=== PATIENT | female | born 1990 | race Hispanic/Latino ===

== ENCOUNTER 2018-10-10 21:11 | Outpatient (CLI) | payer MEDICAID, OTHER ==
[2018-10-10] MEDS ORDERED: LACTATED RINGERS 1,000 ML IV ONE (22:39)
[2018-10-10 23:34] VITALS: BP 106/60
--- NOTE | 2018-10-11 00:29 | Ultrasound Report ---
PROCEDURE: US OB LIMITED TECHNIQUE: Real-time limited sonographic examination was performed for evaluation of for each fetus with image documentation (1 or more fetuses). HISTORY: decrease movement COMPARISONS: None . FINDINGS: Fetus is in a cephalic presentation. Heart rate is 131 bpm. Amniotic fluid and neck since 10.1 cm. IMPRESSION: Fetus is in a cephalic presentation. Heart rate is 131 bpm. Amniotic fluid and neck since 10.1 cm. This document is electronically signed by Casper Fairbanks MD., October 11 2018 12:26:58 AM ET
--- NOTE | 2018-10-11 00:36 | Ultrasound Report ---
PROCEDURE: US OB BPP WO NON-STRESS TECHNIQUE: Ultrasound for biophysical profile. HISTORY: Decreased movement. COMPARISONS: Ultrasound dated October 10, 2018. FINDINGS: Last menstrual period: 03/08/2018. Estimated date of delivery: 12/13/2018. Estimated gestational age: 30 week 6 day. Cephalic presentation. Biophysical profile: breathing movements: Score 2/2. movements: Score 2/2. posture tone: 2/2. Qualitative amniotic fluid volume: 2/2: heart rate: 131 bpm. Total score for biophysical profile: 8/8. IMPRESSION: Normal biophysical profile. This document is electronically signed by Ketan Fenton DO., October 11 2018 12:34:11 AM ET
== END 2018-10-10 23:59 | disposition home or self-care (01) ==
LOC: TRG 21:11
PROVIDERS: ATTEND Obstetrics & Gynecology
DX: O47.03 False labor before 37 completed weeks of gestation, third trimester (principal); Z3A.30 30 weeks gestation of pregnancy; Z90.89 Acquired absence of other organs
CPT/HCPCS: 59025; 76815; 76819

== ENCOUNTER 2018-12-05 09:48 | Inpatient (IN) | payer MEDICAID, OTHER ==
--- NOTE | 2018-12-05 10:17 | History and Physical Report ---
History of Present Illness Date of examination: 12/05/18 Date of admission: 12/05/18 09:48 Chief complaint: Repeat C Section History of present illness: Pt is a 28yo WF EDC 12/12/2018; EGA 39-0/7 weeks who presents for repeat C- section. She received care at [facility] since 10 weeks and care has been uncomplicated except for previous 2. records are available, but GBS is unknown Past History Past Medical History: no pertinent history Past Surgical History: section (x2) OFFICE NURSE History: abnormal PAP smear Family/Genetic History: none Social history: no significant social history, single - Obstetrical History Expected Date of Delivery: 12/12/18 Actual Gestation: 39 Week(s) 0 Day(s) : 4 Medications and Allergies Allergies Allergy/AdvReac Type Severity Reaction Status Date / Time Penicillins Allergy Rash Verified 05/05/14 15:54 Home Medications Medication Instructions Recorded Confirmed Last Taken Type Ferrous Sulfate [Feosol 325 MG tab] 325 mg PO BID #60 tablet 03/30/15 12/05/18 12/04/18 21:00 Rx 1 Vit-Fe Fumar-FA [ 1 tab PO QDAY #30 tablet 03/30/15 12/05/18 12/04/18 09:00 Rx Vitamin] 1 Review of Systems All systems: negative - Physical Exam Breasts: Positive: deferred Cardiovascular: Regular rate Lungs: Positive: Clear to auscultation Abdomen: Positive: normal appearance Genitourinary (Female): Positive: normal external genitalia Vagina: Positive: normal moisture Uterus: Positive: enlarged Extremities: Positive: normal - Obstetrical FHR: category 1 Uterine Contraction Monitor Mode: External Uterine Contraction Pattern: Absent Results Result Diagrams: 12/05/18 11:20 All other labs normal. Assessment and Plan - Patient Problems (1) 39 weeks gestation of Onset Date: 12/05/18 Current Visit: Yes Status: Acute Plan to address problem: A: IUP @ 39 0/7 weeks Previous C Section x 2 P: Admit to L&D for a Repeat C Section (2) Previous delivery affecting , antepartum Onset Date: 12/05/18 Current Visit: No Status: Chronic
[2018-12-05] MEDS ORDERED: BENADRYL IV PRN (10:41)
[2018-12-05] MEDS ORDERED: NARCAN 0.4 MG/1 ML IV PRN ×2 (10:41→14:14)
[2018-12-05] MEDS ORDERED: ZOFRAN IV PRN (10:41)
[2018-12-05] MEDS ORDERED: DILAUDID IV PRN ×2 (10:41)
--- NOTE | 2018-12-05 10:41 | Anesthesia Consultation ---
Anesthesia Consult and Med Hx Date of service: 12/05/18 - Airway Anesthetic Teeth Evaluation: Poor ROM Head & Neck: Adequate Mental/Hyoid Distance: Adequate Mallampati Class: Class II Intubation Access Assessment: Probably Good - Pulmonary Exam CTA: Yes - Cardiac Exam Cardiac Exam: RRR - Pre-Operative Health Status ASA Pre-Surgery Classification: ASA2 Proposed Anesthetic Plan: Spinal - Pulmonary Hx Smoking: No Hx Asthma: No Hx Respiratory Symptoms: No SOB: No COPD: No Home Oxygen Therapy: No Hx Pneumonia: No Hx Sleep Apnea: No - Cardiovascular System Hx Hypertension: No Hx Coronary Artery Disease: No Hx Heart Attack/AMI: No Hx Angina: No Hx Percutaneous Transluminal Coronary Angioplasty (PTCA): No Hx Cardia Arrhythmia: No Hx Pacemaker: No Hx Internal Defibrillator: No Hx Valvular Heart Disease: No Hx Heart Murmur: No Hx Peripheral Vascular Disease: No - Central Nervous System Hx Neuromuscular Disorder: No Hx Seizures: No CVA: No Hx Back Pain: Yes Hx Psychiatric Problems: No - Gastrointestinal Hx Ulcer: No Hx Gastroesophageal Reflux Disease: No - Endocrine Hx Renal Disease: No Hx End Stage Renal Disease: No Hx Cirrhosis: No Hx Liver Disease: No Hx Insulin Dependent Diabetes: No Hx Non-Insulin Dependent Diabetes: No Hx Thyroid Disease: No Hx Hypothyroidism: No Hx Hyperthyroidism: No - Hematic Hx Anemia: Yes (iron bid) Hx Sickle Cell Disease: No - Other Systems Hx Alcohol Use: No Hx Substance Use: No Hx Cancer: No Hx Obesity: Yes (BMI=39)
--- NOTE | 2018-12-05 10:41 | Anesthesia Day of Surgery ---
Anesthesia Day of Surgery - Day of Surgery Patient Examined: Yes Patient H&P Reviewed: Yes Patient is NPO: Yes Beta Blockers: No Cardiac Clearance: No Pulmonary Clearance: No Pavel's Test: N/A
[2018-12-05] MEDS ORDERED: SODIUM CHLORIDE FLUSH SYRINGE 10 ML IV NR ×2 (11:00→15:00)
[2018-12-05] MEDS ORDERED: LACTATED RINGERS 1,000 ML ONE (11:11)
[2018-12-05 11:34] LABS: Basophils % (Auto) 0.3 % (0.0-1.8); Eosinophils % (Auto) 0.2 % (0.0-4.3); Hematocrit 30.9 % (30.3-42.9); Hemoglobin 10.1 gm/dl (10.1-14.3); Lymphocytes # (Auto) 1.1 K/mm3 (1.2-5.4); Lymphocytes % (Auto) 19.9 % (13.4-35.0); Mean Corpuscular HGB Conc 33 % (30-34); Mean Corpuscular Volume 78 fl (79-97); Monocytes # (Auto) 0.4 K/mm3 (0.0-0.8); Monocytes % (Auto) 6.1 % (0.0-7.3); Platelet Count 141 K/mm3 (140-440); Red Blood Count 3.95 M/mm3 (3.65-5.03); Red Cell Distribution Width 19.3 % (13.2-15.2)
[2018-12-05] MEDS: LACTATED RINGERS 1,000 ML IV SCH ×2 (11:50→12:42)
[2018-12-05] MEDS ORDERED: LACTATED RINGERS 1,000 ML IV SCH (12:00)
[2018-12-05] MEDS ORDERED: PEPCID IV ONE (12:09)
[2018-12-05] MEDS ORDERED: REGLAN IV ONE (12:09)
[2018-12-05] MEDS ORDERED: BICITRA PO ONE (12:09)
[2018-12-05] MEDS ORDERED: WATER FOR IRRIG STERILE IR ONE (13:00)
[2018-12-05] MEDS ORDERED: NACL 0.9% IR ONE (13:00)
[2018-12-05] MEDS ORDERED: ANCEF/STERILE WATER 2 GM/20 ML 2 GM/20 ML SYRINGE IV NR (13:00)
[2018-12-05] MEDS ORDERED: PITOCin/NS 20 UNIT/1000ML DRIP 20 UNITS/1,000 ML BAG IV SCH ×2 (13:00→15:00)
[2018-12-05] MEDS ORDERED: ZOFRAN ONE (13:44)
--- NOTE | 2018-12-05 14:12 | Operative Report ---
Operative Report Operative Report: Date of procedure: 12/05/2018 Pre-operative diagnosis: 1. Intrauterine at 39 0/7 weeks 2. Previ ous 2 Post-operative diagnosis: Same Procedure name(s): Repeat low transverse section Surgeon: Malcom Castillo MD Labor Relations Teacher: None Anesthesia: Spinal anesthesia by Breonna Singleton CRNA EBL: 500 mL's Findings: A 3601 g female Apgars 8 at 1 minute 9 at 5 minutes. Clear amniotic fluid. Normal uterus. Normal tubes and ovaries bilaterally. Procedure: After the patient was prepped and draped in usual sterile fashion, and after satisfactory level of epidural anesthesia was obtained, the skin knife was used to make a transverse skin incision through the previous skin scar. The incision was excised down to layer of the fascia, which was nicked in the midline and extended laterally using the Bovie cautery. The rectus muscles were dissected off the rectus fascia both superiorly and inferiorly. The rectus bellies in the midline, and the peritoneum was entered under direct visualization. The peritoneal incision was extended superiorly and inferiorly. A bladder flap was created and the bladder blade was then placed. The uterus was scored in a curvilinear linear fashion, entered in the midline revealing clear amniotic fluid. The infant's head was delivered onto the surgical field, and the oropharynx and nasopharynx were bulb suctioned. The rest of the 's body was delivered, cord was doubly clamped and cut and the infant was handed to the waiting respiratory team. The placenta was manually removed from the uterus, and the uterus removed from its normal anatomical position. After gentle uterine lavage, the incision was inspected and found to be without extensions. It was then closed in 2 layers using 0 Vicryl suture in a running interlocking fashion, the second layer imbricating the first. After good hemostasis was achieved, copious amounts or irrigation was performed, and the gutters were suctioned free of blood and blood clots. The Tisseel sealant was sprayed across the uterine incision. The uterus was then returned to its normal anatomical position, and after excellent hemostasis assured, the peritoneum was re-approximated using 3-0 Vicryl suture in a running interlocking fashion, and then the rectus muscles were re-approximated using 3-0 Vicryl suture in a [id number] configuration. The fascia was then re-approximated using 0 Vicryl suture in running interlocking fashion. The subcutaneous layer was made hemostatic using Bovie cautery, and the skin edges re-approximated using 4-0 Vicryl suture in a sub-cuticular fashion. Patient tolerated the procedure well was transported to recovery in stable condition.
[2018-12-05] MEDS ORDERED: MYLICON PO PRN (14:14)
[2018-12-05] MEDS ORDERED: LANSINOH TP PRN (14:14)
[2018-12-05] MEDS ORDERED: SENOKOT PO PRN (14:14)
[2018-12-05] MEDS ORDERED: TUCKS PAD TP PRN (14:14)
[2018-12-05] MEDS ORDERED: MILK OF MAGNESIA PO PRN (14:14)
[2018-12-05] MEDS ORDERED: TYLENOL PO PRN (14:14)
--- NOTE | 2018-12-05 14:29 | Post Anesthesia Evaluation ---
- Post Anesthesia Evaluation Patient Participated: Yes Airway Patent: Yes Stable Respiratory Function: Yes Nausea/Vomiting: No Temp > 96.8F: Yes Pain Manageable: Yes Adequeate Hydration: Yes Anesthesia Complications: No Block Receding Appropriately: Yes Patient on Ventilator: No
[2018-12-05] MEDS ORDERED: ANCEF/NS 1 GM/50 ML 1 GM/50 ML BAG IV SCH (15:00)
[2018-12-05] MEDS ORDERED: D5LR 1,000 ML IV SCH (15:00)
[2018-12-05] MEDS: TORADOL IV PRN ×2 (18:15→23:25)
[2018-12-05] MEDS: ANCEF/NS 1 GM/50 ML 1 GM/50 ML BAG IV SCH (22:22)
[2018-12-06 02:07] LABS: Hematocrit 25.1 % (30.3-42.9); Hemoglobin 8.5 gm/dl (10.1-14.3)
[2018-12-06] MEDS: PERCOCET 5/325 PO PRN ×2 (05:08→20:36)
[2018-12-06] MEDS: ANCEF/NS 1 GM/50 ML 1 GM/50 ML BAG IV SCH (05:12)
[2018-12-06] MEDS: PRENATAL VITAMIN PO SCH (10:28)
[2018-12-06] MEDS: FEOSOL PO SCH (10:28)
[2018-12-06] MEDS: IBUPROFEN PO PRN ×2 (10:36→23:37)
--- NOTE | 2018-12-06 12:41 | Progress Note ---
Assessment and Plan - Patient Problems (1) S/P repeat low transverse Current Visit: No Status: Acute Plan to address problem: POD 1 - stable Continue routine postop orders Ambulation encouraged, as tolerated Anticipate discharge in 24-48 hours (2) Anemia due to blood loss, acute Current Visit: Yes Status: Acute Plan to address problem: Asymptomatic Continue iron therapy Subjective - Subjective Date of service: 12/06/18 Principal diagnosis: POD #1; s/p Repeat LTCS Interval history: see H&P and Operative Report Patient reports: appetite normal, voiding normally, pain well controlled, flatus, ambulating normally, no dizzy ambulation, no bowel movement : doing well, bottle feeding Objective - Vital Signs Latest vital signs: Vital Signs Temp Pulse Resp BP Pulse Ox 12/06/18 08:22 98.2 F 57 L 18 107/55 97 12/06/18 06:10 98.4 F 67 16 94/51 95 12/06/18 05:08 18 12/06/18 01:46 18 12/06/18 00:46 98.9 F 60 18 104/64 97 12/05/18 23:25 18 12/05/18 20:27 98.3 F 55 L 18 114/64 96 12/05/18 15:26 97.6 F 54 L 18 110/56 97 12/05/18 15:18 53 L 18 107/52 97 12/05/18 15:00 52 L 16 94/40 97 12/05/18 14:45 51 L 16 98/39 97 12/05/18 14:30 50 L 18 91/43 97 12/05/18 14:24 97.8 F 57 L 11 L 114/88 Intake and Output 12/05/18 12/06/18 12/06/18 23:59 07:59 15:59 Intake Total 230 600 240 Output Total 400 310 380 Balance -170 290 -140 Intake: IV 50 ANCEF/NS 1 GM/50 ML 1 gm 50 In 50 ml @ 100 mls/hr IV Q8H [facility] Rx#:[id number] Intake, Free Water 180 600 240 Output: Urine 400 310 380 Indwelling Catheter 400 310 Void 380 Other: Total, Output Amount 400 60 380 # Voids Void 2 - Exam Abdomen: Present: normal appearance, soft Uterus: Present: normal, firm, fundal height at umbilicus Extremities: Present: normal Incision: Present: normal, dry, intact, dressed Comments: small lochia - Labs Labs: Abnormal lab results 12/06/18 Range/Units 01:52 Hgb 8.5 L (10.1-14.3) gm/dl Hct 25.1 L (30.3-42.9) %
[2018-12-06] MEDS ORDERED: M-M-R II VACCINE SUB-Q ONE (14:16)
[2018-12-06] MEDS ORDERED: BOOSTRIX IM ONE (14:16)
[2018-12-06] MEDS: NORCO 5/325 PO PRN (15:50)
[2018-12-07] MEDS: PRENATAL VITAMIN PO SCH (10:00)
[2018-12-07] MEDS: FEOSOL PO SCH (10:00)
[2018-12-07] MEDS: IBUPROFEN PO PRN (12:15)
[2018-12-07] MEDS: PERCOCET 5/325 PO PRN (12:17)
--- NOTE | 2018-12-07 20:52 | Progress Note ---
Assessment and Plan A: /postop day 2 S/P repeat low transverse section. Anemia secondary to and blood loss. P: Continue ambulation. Continue iron supplementation. Subjective - Subjective Date of service: 12/07/18 Principal diagnosis: POD #2; s/p Repeat LTCS Interval history: /postop day 2 S/P repeat low transverse section. Doing well. Patient reports small amount of lochia. Passing gas, voiding without difficulty, ambulating well, tolerating a regular diet. Patient denies headache, chest pain, cough, shortness of breath, dizziness, leg pain, abdominal pain, or heavy bleeding. Patient reports: appetite normal, voiding normally, pain well controlled, flatus, ambulating normally, no dizzy ambulation, no nauseated : doing well Objective - Vital Signs Latest vital signs: Vital Signs Temp Pulse Resp BP Pulse Ox 12/07/18 17:51 98.2 F 65 18 126/68 99 12/07/18 08:23 98.1 F 55 L 18 116/63 98 12/07/18 00:19 98.7 F 67 20 111/62 95 Intake and Output 12/07/18 12/07/18 12/07/18 07:59 15:59 23:59 Intake Total 1560 Balance 1560 Intake: Oral 600 Intake, Free Water 960 Other: Total, Intake Amount 600 # Voids Void 4 - Exam Cardiovascular: Present: Regular rate, Normal S1, Normal S2 Lungs: Present: Clear to auscultation Abdomen: Present: normal appearance, soft, normal bowel sounds. Absent: distention, tenderness, guarding, rigidity Uterus: Present: normal, firm. Absent: bogginess, tenderness Extremities: Present: normal. Absent: tenderness, edema Incision: Present: normal, dry, intact
[2018-12-07] MEDS: NORCO 5/325 PO PRN (21:58)
[2018-12-08] MEDS: FEOSOL PO SCH (09:15)
[2018-12-08] MEDS: PRENATAL VITAMIN PO SCH (09:15)
[2018-12-08] MEDS: IBUPROFEN PO PRN (09:16)
--- NOTE | 2018-12-08 16:21 | Progress Note ---
Assessment and Plan A: /postop day 3 S/P repeat low transverse section. Anemia secondary to and blood loss. P: Discharge patient home today. Discused with patient discharge instructions and warning signs, care of incision, and activity restrictions. Advised patient to continue to take vitamins and iron supplements at home. Advised patient to avoid intercourse, driving, stair climbing, lifting, heavy housework, tub baths (patient may take showers). Advised patient to follow up at OB clinic in 1 week for incision check. Patient voiced understanding of discharge instructions. Subjective - Subjective Date of service: 12/08/18 Principal diagnosis: POD #3; s/p Repeat LTCS Interval history: /postop day 3 S/P repeat low transverse section. Doing well. Patient reports small amount of lochia. Passing gas, voiding without difficulty, ambulating well, tolerating a regular diet. Patient denies headache, chest pain, cough, shortness of breath, dizziness, leg pain, abdominal pain, nausea or vomiting, or heavy bleeding. Patient reports: appetite normal, voiding normally, pain well controlled, flatus, ambulating normally, no dizzy ambulation, no nauseated [place]: doing well Objective - Vital Signs Latest vital signs: Vital Signs Temp Pulse Resp BP Pulse Ox 12/08/18 08:22 98.3 F 68 20 120/74 100 12/08/18 00:43 97.9 F 69 20 119/68 99 12/07/18 22:58 18 12/07/18 21:58 18 12/07/18 17:51 98.2 F 65 18 126/68 99 Intake and Output 12/08/18 12/08/18 12/08/18 07:59 15:59 23:59 Intake Total 240 Balance 240 Intake: Oral 240 Other: Total, Intake Amount 240 # Voids Void 1 1 - Exam Cardiovascular: Present: Regular rate, Normal S1, Normal S2, No murmurs Lungs: Present: Clear to auscultation Abdomen: Present: normal appearance, soft, normal bowel sounds. Absent: distention, tenderness, guarding, rigidity Uterus: Present: normal, firm, fundal height below umbilicus. Absent: bogginess, tenderness Extremities: Present: normal. Absent: tenderness, edema Incision: Present: normal, dry, intact
--- NOTE | 2018-12-08 16:24 | Discharge Summary ---
Providers - Providers Date of Admission: 12/05/18 09:48 Date of discharge: 12/08/18 Attending physician: SUSIE FLORES None Primary care physician: SUSIE FLORES Hospitalization Reason for admission: section Delivery: Procedure: repeat low transverse Incision: normal, dry, intact Other procedures: none complications: none Discharge diagnosis: IUP at term delivered [place] baby: female Pertinent studies: Labs Hospital course: Normal hospital course. Disposition: DC-30 STILL A PATIENT Plan - Discharge Medications Prescriptions: Ferrous Sulfate [Feosol 325 MG tab] 325 mg PO BID #60 tablet Ibuprofen [Motrin] 800 mg PO Q8HR PRN #30 tablet PRN Reason: Pain, Mild (1-3) HYDROcodone/APAP 5-325 [[place] 5/325] 1 each PO Q6HR PRN #30 tablet PRN Reason: Pain Vit-Fe Fumar-FA [ Vitamin] 1 tab PO QDAY #30 tablet - Provider Discharge Summary Activity: routine, no sex for 6 weeks, no heavy lifting 4 weeks, no strenuous exercise Diet: routine Instructions: routine Additional instructions: Please continue taking your vitamins and iron supplements at home. Call your doctor immediately for: * Fever > 100.5 * Heavy vaginal bleeding ( >1 pad per hour) * Severe persistent headache * Shortness of breath * Reddened, hot, painful area to leg or breast * Drainage or odor from incision. * Keep incision clean and dry at all times and follow doctor's instructions regarding bathing/showering - Follow up plan Follow up: SUSIE FLORES MD [Primary Care Provider] - 7 Days Forms: [facility] Discharge Summary
[2018-12-08 17:27] VITALS: BP 116/70
== END 2018-12-08 20:00 | disposition home or self-care (01) | DRG 765 ==
LOC: APU 09:48 → OB 16:35
PROVIDERS: ADMIT Obstetrics & Gynecology; ATTEND Obstetrics & Gynecology
PROC: 10D00Z1 Extraction of Products of Conception, Low, Open Approach (ICD-10-PCS; principal; 2018-12-05)
PROC: 3E0234Z Introduction of Serum, Toxoid and Vaccine into Muscle, Percutaneous Approach (ICD-10-PCS; 2018-12-06)
DX: O34.211 Maternal care for low transverse scar from previous cesarean delivery (principal); D62 Acute posthemorrhagic anemia; Z37.0 Single live birth; Z3A.39 39 weeks gestation of pregnancy; Z88.0 Allergy status to penicillin; O99.214 Obesity complicating childbirth; E66.9 Obesity, unspecified; O99.02 Anemia complicating childbirth; Z23 Encounter for immunization
CPT/HCPCS: 36415; 59025; 85014; 85018; 85025; 86592; 86850; 86900; 86901; 96360; 96361; 96374; G0378; J0690; J1170; J1885; J2405; J2590; J2765; J7120; J7121

== ENCOUNTER 2020-10-24 22:16 | Outpatient (CLI) | payer MEDICAID ==
[2020-10-24 22:42] VITALS: BP 112/63
[2020-10-25] LABS: Bacteria,Urine 3+ /HPF (Negative); Bilirubin,Urine NEG (Negative); Blood,Urine NEG (Negative); Color,Urine Yellow (Yellow); Mucus,Urine 3+ /HPF
[2020-10-25] MEDS ORDERED: LIDOCAINE-MPF (1%) 10 MG/1 ML VIAL 5 ML INFILTRATI ONE (01:15)
== END 2020-10-25 00:45 | disposition home or self-care (01) ==
LOC: TRG 22:16 → APU 22:24 → TRG 10-25 00:45
DX: O36.8120 Decreased fetal movements, second trimester, not applicable or unspecified (principal); O26.92 Pregnancy related conditions, unspecified, second trimester; R10.30 Lower abdominal pain, unspecified; Z3A.22 22 weeks gestation of pregnancy
CPT/HCPCS: 59025; 81001; 96372; J0696

== ENCOUNTER 2021-02-15 09:01 | Inpatient (IN) | payer MEDICAID ==
[2021-02-15] MEDS ORDERED: METOCLOPRAMIDE 10 MG/2 ML INJ IV NR (09:33)
[2021-02-15] MEDS ORDERED: BICITRA ORAL LIQD 30ML PO NR (09:33)
[2021-02-15] MEDS ORDERED: FAMOTIDINE 20 MG/2 ML INJ IV NR (09:33)
--- NOTE | 2021-02-15 09:37 | History and Physical Report ---
History of Present Illness Date of examination: 02/15/21 Date of admission: 02/15/21 09:01 Chief complaint: repeat c/s + BTL History of present illness: 30 yo at 39w0d (MARY 02/22/21) c/b prior x c/s x 3, Class III Obesity presenting for repeat and bilateral tubal ligation. Denies labor symptoms or PIH symptoms. Active fetus. PNC reviewed A pos, Ab neg Hemoglobin and hematocrit 35.8 and 12.0 platelets 253 Varicella immune Rubella immune RPR nonreactive HIV nonreactive 1 hour GTT 77 Past History Past Medical History: no pertinent history Past Surgical History: section (x3), D&C Family/Genetic History: hypertension Social history: no significant social history - Obstetrical History Expected Date of Delivery: 02/22/21 Actual Gestation: 39 Week(s) 0 Day(s) : 5 Para: 5 Hx # Term Pregnancies: 3 Spontaneous Abortions: 1 Number of Living Children: 3 Medications and Allergies Allergies Allergy/AdvReac Type Severity Reaction Status Date / Time No Known Allergies Allergy Unverified 12/07/18 06:50 Home Medications Medication Instructions Recorded Confirmed Last Taken Type Ferrous Sulfate [Feosol 325 MG tab] 325 mg PO BID #60 tablet 12/05/18 Unknown Rx HYDROcodone/APAP 5-325 [[place] 1 each PO Q6HR PRN #30 tablet 12/05/18 Unknown Rx 5/325] Ibuprofen [Motrin] 800 mg PO Q8HR PRN #30 tablet 12/05/18 Unknown Rx Vit-Fe Fumar-FA [ 1 tab PO QDAY #30 tablet 12/05/18 Unknown Rx Vitamin] Review of Systems All systems: negative (expect HPI) - Physical Exam Abdomen: Positive: normal appearance, soft Uterus: Positive: enlarged - Obstetrical FHR: category 1 Uterine Contraction Monitor Mode: External Uterine Contraction Pattern: Absent Results All other labs normal. Assessment and Plan - Patient Problems (1) S/P repeat low transverse Current Visit: No Status: Acute Plan to address problem: To the OR for repeat and bilateral tubal ligation --Consented in the chart --Questions solicited and answered
[2021-02-15] MEDS ORDERED: OXYTOCIN DRIP 30 UNITS/500 ML BAG IV SCH ×2 (10:00→14:00)
[2021-02-15] MEDS ORDERED: ceFAZolin/Water 2 GM/20 ML 2 GM/20 ML SYRINGE IV NR (10:00)
[2021-02-15] MEDS: LACTATED RINGERS 1,000 ML IV SCH ×3 (10:00→22:51)
[2021-02-15 10:04] LABS: Basophils % (Auto) 0.2 % (0.0-1.8); Eosinophils % (Auto) 0.3 % (0.0-4.3); Hematocrit 28.7 % (30.3-42.9); Hemoglobin 9.4 gm/dl (10.1-14.3); Lymphocytes # (Auto) 1.3 K/mm3 (1.2-5.4); Lymphocytes % (Auto) 21.9 % (13.4-35.0); Mean Corpuscular HGB Conc 33 % (30-34); Mean Corpuscular Volume 75 fl (79-97); Monocytes # (Auto) 0.4 K/mm3 (0.0-0.8); Monocytes % (Auto) 6.9 % (0.0-7.3); Platelet Count 165 K/mm3 (140-440); Red Cell Distribution Width 15.9 % (13.2-15.2)
[2021-02-15] MEDS ORDERED: dexAMETHasone 20 MG/5 ML VIAL ONE (10:47)
[2021-02-15] MEDS ORDERED: BUPIVACAINE/PF (0.5%) 5 MG/1 ML 30 ML VIAL INFILTRATI ONE (10:47)
[2021-02-15] MEDS ORDERED: ONDANSETRON 4 MG/2 ML INJ ONE (10:47)
[2021-02-15] MEDS ORDERED: PHENYLEPHRINE 10 MG/1 ML INJ SDV ONE (10:48)
--- NOTE | 2021-02-15 10:48 | Anesthesia Day of Surgery ---
Anesthesia Day of Surgery - Day of Surgery Patient Examined: Yes Patient H&P Reviewed: Yes Patient is NPO: Yes
--- NOTE | 2021-02-15 10:48 | Anesthesia Consultation ---
Anesthesia Consult and Med Hx Date of service: 02/15/21 - Airway Anesthetic Teeth Evaluation: Good ROM Head & Neck: Adequate Mental/Hyoid Distance: Adequate Mallampati Class: Class II Intubation Access Assessment: Probably Good - Pulmonary Exam CTA: Yes - Cardiac Exam Cardiac Exam: RRR - Pre-Operative Health Status ASA Pre-Surgery Classification: ASA3 Proposed Anesthetic Plan: Spinal - Pulmonary Hx Smoking: No Hx Asthma: No Hx Respiratory Symptoms: No SOB: No COPD: No Hx Pneumonia: No Hx Sleep Apnea: No - Cardiovascular System Hx Hypertension: No Hx Coronary Artery Disease: No Hx Heart Attack/AMI: No Hx Angina: No Hx Percutaneous Transluminal Coronary Angioplasty (PTCA): No Hx Cardia Arrhythmia: No Hx Pacemaker: No Hx Internal Defibrillator: No Hx Valvular Heart Disease: No Hx Heart Murmur: No Hx Peripheral Vascular Disease: No - Central Nervous System Hx Neuromuscular Disorder: No Hx Seizures: No CVA: No Hx Back Pain: Yes Hx Psychiatric Problems: No - Gastrointestinal Hx Ulcer: No Hx Gastroesophageal Reflux Disease: No - Endocrine Hx Renal Disease: No Hx End Stage Renal Disease: No Hx Cirrhosis: No Hx Liver Disease: No Hx Insulin Dependent Diabetes: No Hx Non-Insulin Dependent Diabetes: No Hx Thyroid Disease: No Hx Hypothyroidism: No Hx Hyperthyroidism: No - Hematic Hx Anemia: Yes Hx Sickle Cell Disease: No - Other Systems Hx Alcohol Use: No Hx Substance Use: No Hx Cancer: No Hx Obesity: Yes
[2021-02-15] MEDS ORDERED: SODIUM CHLORIDE 0.9% IRR 1,500 ML BOTTLE IR ONE (12:02)
[2021-02-15] MEDS ORDERED: WATER FOR IRRIG STERILE 1,500 ML BOTTLE IR ONE (12:02)
[2021-02-15] MEDS ORDERED: propofoL 200 MG/20 ML VIAL IV ONE ×2 (12:09→12:10)
[2021-02-15] MEDS ORDERED: ROCURONIUM 50 MG/5 ML INJ IV ONE (12:09)
[2021-02-15] MEDS ORDERED: SUGAMMADEX SODIUM 200 MG/2 ML VIAL IV ONE (12:24)
[2021-02-15] MEDS ORDERED: METHYLERGONOVINE MALEATE 0.2 MG/ML VIAL IM ONE (12:26)
[2021-02-15] MEDS ORDERED: CARBOPROST TROMETHAMINE 250 MCG/1 ML INJ IM ONE (12:27)
[2021-02-15] MEDS ORDERED: OXYTOCIN 10 UNIT/1 ML INJ ONE (12:42)
[2021-02-15] MEDS ORDERED: oxyCODONE /ACETAMINOPHEN 5-325MG TAB PO PRN (13:21)
[2021-02-15] MEDS ORDERED: MORPHINE 4 MG/1 ML INJ IV PRN (13:21)
[2021-02-15] MEDS ORDERED: NALOXONE 0.4 MG/1 ML INJ IV PRN (13:21)
[2021-02-15] MEDS ORDERED: ONDANSETRON 4 MG/2 ML INJ IV PRN (13:21)
[2021-02-15] MEDS ORDERED: PROMETHAZINE 25 MG RECT SUPP PR PRN (13:21)
[2021-02-15] MEDS ORDERED: HYDROCORTISONE 25 MG RECTAL SUPP PR PRN (13:21)
[2021-02-15] MEDS ORDERED: LANOLIN/ZINC/DIMETHICONE (LANSINOH) 7 GM TP PRN (13:21)
[2021-02-15] MEDS ORDERED: SENNOSIDES 8.6 MG TAB PO PRN (13:21)
[2021-02-15] MEDS ORDERED: SIMETHICONE 80 MG CHEW TAB PO PRN (13:21)
[2021-02-15] MEDS ORDERED: WITCH HAZEL/ GLYCERIN PAD TP PRN (13:21)
[2021-02-15] MEDS ORDERED: MAGNESIUM HYDROXIDE (MOM) ORAL LIQD UDC PO PRN (13:21)
--- NOTE | 2021-02-15 13:26 | Procedure Note ---
OB Delivery Note - Delivery Date of Delivery: 02/15/21 Surgeon: STEFAN MIRANDA JR Estimated blood loss: other (1265 EBL) - Section Preop diagnosis: repeat Postop diagnosis: same section procedure: section, repeat low transverse Disposition: PACU Complications: uterine atony (s/p methergine x 1, hemabate x 1, additional 10U pitocin in standard pitocin) Narrative: Indication: 30 yo at 39w0d (MARY 02/22/21) c/b prior x c/s x 3, Class III Obesity presenting for repeat and bilateral tubal ligation. Findings: Normal uterus, ovaries, tubes, and surrounding blood vessels in close proximity to eachother. Uterine atony improved with Methergine x1, Hemabate x1, additional IV Pitocin. Clear fluid. Body cord x1 cord. Delivery of male at 1221 Weight 3990g Height 21.5 in APGARS 7/9 EBL 1265 ccQBL IVF 2000 cc UOP 100 cc Procedure: Patient was taken to the operating room prepped and draped in the usual sterile fashion. Pfannenstiel skin incision was made and carried down to the underlying fascia. Fascia was incised and the incision was distended bilaterally. Rectus fascia was dissected off the rectus muscle superiorly and inferiorly. Peritoneum was identified and entered. Peritoneal incision extended superiorly and inferiorly. The bladder was visualized. The bladder blade was placed. Uterine hysterotomy incision was made and extended bilaterally. The baby was delivered in the typical vertex fashion. Baby was bulb suction at delivery. The cord was cut and clamped and handed off to the team. The placenta was delivered spontaneously. The uterus was ex teriorized and cleared of all clots and debris. Uterine incision was closed with a 0 Vicryl in a running locked fashion. Good hemostasis was noted after 2 [id number] sutures applied to the uterine incision. Significant uterine atony was noted and assisted necessitating Methergine x1, Hemabate x1, an additional 10 units of Pitocin injected into the IV pitocin bag. Surgicel powder was applied to the uterine incisional base to provide hemostasis. The urine was noted to be clear. Uterus, tubes, and ovaries were returned to the abdominal cavity. Bilateral gutters were cleared and the abdomen and pelvis were irrigated. Good hemostasis noted. The rectus muscle was reapproximated with 2-0 Vicryl. Attention was directed towards the rectus fascia which was reapproximated with 0 PDS in a running fashion. The subcutaneous tissue was irrigated and reapproximated with 2-0 Vicryl in a running fashion. Skin was closed with a 4-0 Vicryl in a subcuticular fashion. The procedure was completed and the patient tolerated the procedure well. All instruments and lap counts were correct x2. - Infant A at 1 minute: 7 at 5 minutes: 9 Infant Gender: Male
[2021-02-15] MEDS ORDERED: LOPERAMIDE 2 MG CAP ONE ×2 (13:40)
[2021-02-15] MEDS ORDERED: ACETAMINOPHEN 325 MG TAB PO PRN (14:00)
--- NOTE | 2021-02-15 14:08 | Progress Note ---
Spinal Anesthesia Block - Spinal Anesthesia Block Start Time: 11:37 Stop Time: 11:45 Performed by:: IDALIA BELLO Procedure: Sitting, sterile chlorahexadine 0.5% prep/drape, 1% lidocaine skin local, 25G spinal needle + introducer at L3-4, not long enough, 22G x1 no introducer same space, + CSF, - Heme, [1.9 ml 0.5% bupivacaine + 10 mcg dexmedetomidine] injected, drape removed, patient positioned supine with left uterine displacement, and spinal level spotty and indequate for surgery, patient requests GA rather than repeating spinal. Green SRNA
[2021-02-15] MEDS: KETOROLAC 30 MG/1 ML INJ IV SCH ×2 (17:38→23:51)
[2021-02-15 22:16] LABS: Hematocrit 25.6 % (30.3-42.9); Hemoglobin 8.2 gm/dl (10.1-14.3); Mean Corpuscular HGB Conc 32 % (30-34); Mean Corpuscular Volume 74 fl (79-97); Platelet Count 166 K/mm3 (140-440); Red Blood Count 3.45 M/mm3 (3.65-5.03); Red Cell Distribution Width 15.9 % (13.2-15.2)
[2021-02-16 00:39] LABS: Band Neutrophils # (Manual) 0.2 K/mm3; Total Cells Counted 100
[2021-02-16 00:40] LABS: Anisocytosis 2+; Hypochromasia 2+
[2021-02-16 00:41] LABS: Large Platelets Few; Platelet Estimate Consistent w Auto
[2021-02-16 01:32] LABS: Hematocrit 26.4 % (30.3-42.9); Hemoglobin 8.4 gm/dl (10.1-14.3)
[2021-02-16] MEDS: KETOROLAC 30 MG/1 ML INJ IV SCH (06:04)
--- NOTE | 2021-02-16 11:27 | Progress Note ---
Assessment and Plan A: POD #1 Asymptomatic Anemia P: Follow Routine PostOp Orders Infed 100mg Im x 1 Dose Subjective - Subjective Date of service: 02/16/21 Patient reports: appetite normal, voiding normally, pain well controlled, flatus, ambulating normally [place]: doing well, bottle feeding Objective - Vital Signs Latest vital signs: Vital Signs Temp Pulse Resp BP BP Pulse Ox Pulse Ox 02/16/21 08:51 100 02/16/21 08:10 98.1 F 67 18 104/61 100 02/16/21 06:02 98 02/16/21 04:34 98.1 F 66 20 109/57 96 02/16/21 03:50 98 02/16/21 02:40 98 02/15/21 23:46 98.8 F 96 H 20 115/67 94 02/15/21 23:44 98 02/15/21 21:35 98 02/15/21 20:13 98.3 F 67 20 109/57 97 02/15/21 20:00 98 02/15/21 15:10 98.2 F 68 18 105/56 97 97 02/15/21 14:35 97.8 F 70 15 97/50 98 02/15/21 14:20 73 17 114/45 98 02/15/21 14:05 79 16 113/41 96 02/15/21 13:50 79 16 114/48 96 02/15/21 13:45 82 17 115/50 97 02/15/21 13:40 87 18 111/48 97 02/15/21 13:37 97.3 F L 89 18 105/52 97 Intake and Output 02/15/21 02/16/21 02/16/21 22:59 06:59 14:59 Intake Total 360 240 120 Output Total 1050 Balance 360 -810 120 Intake: Oral 360 240 120 Output: Urine 1050 Indwelling Catheter 900 Void 150 Other: Total, Intake Amount 120 120 120 Total, Output Amount 150 # Voids Indwelling Catheter 650 1 Void 1 - Exam Breasts: Present: normal Cardiovascular: Present: Regular rate Lungs: Present: Clear to auscultation, Normal air movement Abdomen: Present: normal appearance, soft, normal bowel sounds Uterus: Present: normal, firm, fundal height below umbilicus Extremities: Present: normal Incision: Present: dry, dressed - Labs Labs: Abnormal lab results 02/15/21 02/16/21 Range/Units 20:59 01:18 RBC 3.45 L (3.65-5.03) M/mm3 Hgb 8.2 L 8.4 L (10.1-14.3) gm/dl Hct 25.6 L 26.4 L (30.3-42.9) % MCV 74 L (79-97) fl MCH 24 L (28-32) pg RDW 15.9 H (13.2-15.2) % Seg Neuts % (Manual) 91.0 H (40.0-70.0) % Lymphocytes % (Manual) 5.0 L (13.4-35.0) % Seg Neutrophils # Man 9.7 H (1.8-7.7) K/mm3 Lymphocytes # (Manual) 0.5 L (1.2-5.4) K/mm3
[2021-02-16] MEDS ORDERED: IRON DEXTRAN COMPLEX 100 MG/2 ML INJ IM SCH (12:00)
--- NOTE | 2021-02-16 12:07 | Post Anesthesia Evaluation ---
- Post Anesthesia Evaluation Patient Participated: Yes Airway Patent: Yes Stable Respiratory Function: Yes Nausea/Vomiting: No Temp > 96.8F: Yes Pain Manageable: Yes Adequeate Hydration: Yes Anesthesia Complications: No Block Receding Appropriately: Yes
[2021-02-16] MEDS: IBUPROFEN 800 MG TAB PO PRN (14:32)
[2021-02-17] MEDS: IBUPROFEN 800 MG TAB PO PRN ×2 (05:19→12:25)
--- NOTE | 2021-02-17 12:16 | Progress Note ---
Assessment and Plan A: POD #2 Asymptomatic Anemia P: Follow Routine PostOp Orders Increase Dietary Iron D/C home today per patient request RTo in one week Subjective - Subjective Date of service: 02/17/21 Patient reports: appetite normal, voiding normally, pain well controlled, flatus, ambulating normally [place]: doing well, bottle feeding Objective - Vital Signs Latest vital signs: Vital Signs Temp Pulse Resp BP Pulse Ox Pulse Ox 02/17/21 08:30 98 02/17/21 08:16 98.4 F 67 20 102/55 94 02/17/21 05:17 98 02/17/21 03:15 98 02/17/21 01:10 98 02/17/21 00:25 98 02/16/21 23:58 98.3 F 74 20 118/54 93 02/16/21 21:30 98 02/16/21 20:35 98 02/16/21 16:00 98.4 F 76 18 100/61 97 02/16/21 14:32 16 Intake and Output 02/16/21 02/17/21 02/17/21 22:59 06:59 14:59 Intake Total 480 600 240 Balance 480 600 240 Intake: Oral 480 600 240 Other: Total, Intake Amount 120 240 240 # Voids Void 1 1 1 - Exam Breasts: Present: normal Cardiovascular: Present: Regular rate Lungs: Present: Clear to auscultation, Normal air movement Abdomen: Present: normal appearance, soft, normal bowel sounds Uterus: Present: normal, firm, fundal height below umbilicus Extremities: Present: normal Incision: Present: normal, intact
--- NOTE | 2021-02-17 12:17 | Discharge Summary ---
Providers - Providers Date of Admission: 02/15/21 09:01 Date of discharge: 02/17/21 Attending physician: STEFAN MIRANDA JR, MD Primary care physician: ALONDRA DAVILA MD Hospitalization Reason for admission: section Delivery: Procedure: bilateral tubal ligation, repeat low transverse Episiotomy: none Laceration: none Incision: normal, dry, intact Other procedures: none complications: none Discharge diagnosis: IUP at term delivered [place] baby: male Condition at discharge: Good Disposition: HOME / SELF CARE / HOMELESS Plan - Discharge Medications Prescriptions: Ibuprofen [Motrin 800 MG tab] 800 mg PO Q6H PRN #30 tablet PRN Reason: Pain, Mild (1-3) oxyCODONE /ACETAMINOPHEN [Percocet 5/325 mg] 1 tab PO Q6H PRN #30 tablet PRN Reason: Pain, Moderate (4-6) - Provider Discharge Summary Activity: routine, no sex for 6 weeks, no heavy lifting 4 weeks, no strenuous exercise Diet: routine Instructions: routine Additional instructions: [] Smoking cessation referral if applicable(refer to patient education folder for contact #) [] Refer to [facility] Booklet Call your doctor immediately for: * Fever > 100.5 * Heavy vaginal bleeding ( >1 pad per hour) * Severe persistent headache * Shortness of breath * Reddened, hot, painful area to leg or breast * Drainage or odor from incision. * Keep incision clean and dry at all times and follow doctor's instructions regarding bathing/showering - Follow up plan Follow up: STEFAN MIRANDA JR, MD [Staff Physician] - 7 Days Forms: [facility] Discharge Summary
[2021-02-17 13:08] VITALS: BP 103/51
== END 2021-02-17 13:45 | disposition home or self-care (01) | DRG 766 ==
LOC: APU 09:01 → OB 15:29
PROVIDERS: ADMIT Obstetrics & Gynecology; ATTEND Obstetrics & Gynecology
PROC: 10D00Z1 Extraction of Products of Conception, Low, Open Approach (ICD-10-PCS; principal; 2021-02-15)
PROC: 0UB70ZZ Excision of Bilateral Fallopian Tubes, Open Approach (ICD-10-PCS; 2021-02-15)
DX: O34.211 Maternal care for low transverse scar from previous cesarean delivery (principal); Z37.0 Single live birth; Z3A.39 39 weeks gestation of pregnancy; O99.214 Obesity complicating childbirth; Z82.49 Family history of ischemic heart disease and other diseases of the circulatory system; Z20.822 Contact with and (suspected) exposure to COVID-19; O90.81 Anemia of the puerperium; D64.9 Anemia, unspecified; Z30.2 Encounter for sterilization
CPT/HCPCS: 36415; 71046; 71275; 80053; 84484; 85007; 85014; 85018; 85025; 85379; 86592; 86706; 86850; 86900; 86901; 87591; 93005; 99284; G0378; J1100; J1750; J1885; J2270; J2370; J2405; J2590; J2704; J2765; J3490; J7120; Q9967; U0003

== ENCOUNTER 2021-02-18 13:11 | Emergency (ER) | payer MEDICAID ==
[2021-02-18 13:25] VITALS: BP 133/78
--- NOTE | 2021-02-18 14:30 | Emergency Department Report ---
ED General Adult HPI - General Chief complaint: Chest Pain Stated complaint: CHEST DISCOMFORT, LT ARM PAIN Time Seen by Provider: 02/18/21 13:31 Source: patient Mode of arrival: Ambulatory Limitations: No Limitations - History of Present Illness Initial comments: 30-year-old female patient presents with complaints of chest pressure and shortness of breath x3 days. Patient states her symptoms began the day after she had a . Patient states she was sedated for the . She states her chest does not hurt, however she has a deep pressure that worsens with ambulation. Shortness of breath only occurs with ambulation per patient. She denies any call, hemoptysis, recent long travel, history of DVT/PE/cancer, or hormone use. Patient states she has chronic swelling in her legs and ankles and denies any new or worsening symptoms or pain in the legs. No other past medical history per patient. She also denies any loss of taste or smell. - Related Data Previous Rx's Medication Instructions Recorded Last Taken Type Vit-Fe Fumar-FA [ 1 tab PO QDAY #30 tablet 12/05/18 Unknown Rx Vitamin] Ibuprofen [Motrin 800 MG tab] 800 mg PO Q6H PRN #30 tablet 02/15/21 Unknown Rx oxyCODONE /ACETAMINOPHEN [Percocet 1 tab PO Q6H PRN #30 tablet 02/15/21 Unknown Rx 5/325 mg] Allergies Allergy/AdvReac Type Severity Reaction Status Date / Time No Known Allergies Allergy Unverified 12/07/18 06:50 ED Review of Systems ROS: Stated complaint: CHEST DISCOMFORT, LT ARM PAIN Other details as noted in HPI Constitutional: denies: chills, diaphoresis, fever, malaise Respiratory: shortness of breath. denies: cough Cardiovascular: as per HPI. denies: syncope Gastrointestinal: denies: abdominal pain, nausea, vomiting Musculoskeletal: denies: back pain ED Past Medical Hx - Past Medical History Previous Medical History?: Yes Hx Hypertension: No Hx Heart Attack/AMI: No Hx Congestive Heart Failure: No Hx Diabetes: No Hx Deep Vein Thrombosis: No Hx Liver Disease: No Hx Renal Disease: No Hx Sickle Cell Disease: No Hx Seizures: No Hx Asthma: No Hx COPD: No Hx HIV: No Additional medical history: blighted ovum - Surgical History Past Surgical History?: Yes Hx Pacemaker: No Hx Internal Defibrillator: No Additional Surgical History: X1, TONSILLECTOMY, LEFT ELBOW SURGERY - Social History Smoking Status: Never Smoker - Medications Home Medications: Home Medications Medication Instructions Recorded Confirmed Last Taken Type Vit-Fe Fumar-FA [ 1 tab PO QDAY #30 tablet 12/05/18 02/15/21 Unknown Rx Vitamin] Ibuprofen [Motrin 800 MG tab] 800 mg PO Q6H PRN #30 tablet 02/15/21 Unknown Rx oxyCODONE /ACETAMINOPHEN [Percocet 1 tab PO Q6H PRN #30 tablet 02/15/21 Unknown Rx 5/325 mg] ED Physical Exam - General Limitations: No Limitations General appearance: alert, in no apparent distress - Head Head exam: Present: atraumatic, normocephalic - Eye Eye exam: Present: normal appearance - Neck Neck exam: Present: normal inspection - Respiratory Respiratory exam: Present: normal lung sounds bilaterally. Absent: respiratory distress, chest wall tenderness - Cardiovascular Cardiovascular Exam: Present: regular rate, normal rhythm. Absent: systolic murmur, diastolic murmur, rubs, gallop - Extremities Exam Extremities exam: Present: other (Mild bilateral lower leg and ankle nonpitting edema noted; no skin changes noted; no tenderness to palpation noted). Absent: calf tenderness - Back Exam Back exam: Present: full ROM - Neurological Exam Neurological exam: Present: alert, oriented X3 - Psychiatric Psychiatric exam: Present: normal affect, normal mood - Skin Skin exam: Present: warm, dry, intact, normal color. Absent: rash ED Course Vital Signs 02/18/21 02/18/21 02/18/21 13:22 13:24 21:14 Temperature 98.9 F Pulse Rate 70 72 Respiratory 18 16 Rate Blood Pressure 133/78 [Left] O2 Sat by Pulse 100 98 Oximetry ED Medical Decision Making - Lab Data Result diagrams: 02/18/21 14:54 02/18/21 14:54 Lab Results 02/18/21 02/18/21 02/18/21 Range/Units 14:54 14:54 14:54 WBC 6.6 (4.5-11.0) K/mm3 RBC 3.16 L (3.65-5.03) M/mm3 Hgb 7.4 L (10.1-14.3) gm/dl Hct 23.7 L (30.3-42.9) % MCV 75 L (79-97) fl MCH 23 L (28-32) pg MCHC 31 (30-34) % RDW 16.4 H (13.2-15.2) % Plt Count 205 (140-440) K/mm3 Lymph % (Auto) 21.1 (13.4-35.0) % Rains % (Auto) 5.0 (0.0-7.3) % Eos % (Auto) 0.3 (0.0-4.3) % Baso % (Auto) 0.2 (0.0-1.8) % Lymph # (Auto) 1.4 (1.2-5.4) K/mm3 Rains # (Auto) 0.3 (0.0-0.8) K/mm3 Eos # (Auto) 0.0 (0.0-0.4) K/mm3 Baso # (Auto) 0.0 (0.0-0.1) K/mm3 Add Manual Diff Complete Seg Neutrophils % 73.4 H (40.0-70.0) % Seg Neutrophils # 4.8 (1.8-7.7) K/mm3 D-Dimer 1117.11 H (0-234) ng/mlDDU Sodium 140 (137-145) mmol/L Potassium 4.3 (3.6-5.0) mmol/L Chloride 106.3 (98-107) mmol/L Carbon Dioxide 22 (22-30) mmol/L Anion Gap 16 mmol/L BUN 7 (7-17) mg/dL Creatinine 0.3 L (0.6-1.2) mg/dL Estimated GFR > 60 ml/min BUN/Creatinine Ratio 23 % Glucose 84 (65-100) mg/dL Calcium 8.9 (8.4-10.2) mg/dL Total Bilirubin 0.20 (0.1-1.2) mg/dL AST 13 (5-40) units/L ALT 7 (7-56) units/L Alkaline Phosphatase 147 H (35-129) units/L Troponin T < 0.010 (0.00-0.029) ng/mL Total Protein 6.2 L (6.3-8.2) g/dL Albumin 3.1 L (3.9-5) g/dL Albumin/Globulin Ratio 1.0 % - EKG Data EKG shows normal: sinus rhythm Rate: normal - Radiology Data Radiology results: report reviewed CHEST 2 VIEWS INDICATION / CLINICAL INFORMATION: chest pressure, SOB, recent surgery. COMPARISON: None available. FINDINGS: SUPPORT DEVICES: None. HEART / MEDIASTINUM: No significant abnormality. LUNGS / PLEURA: No significant pulmonary or pleural abnormality. No pneumothorax. ADDITIONAL FINDINGS: No significant additional findings. IMPRESSION: 1. No acute findings. - Medical Decision Making 30-year-old female patient presents with complaints of chest pressure and shortness of breath x3 days. Patient states her symptoms began the day after she had a . Patient states she was sedated for the . She states her chest does not hurt, however she has a deep pressure that worsens with ambulation. Shortness of breath only occurs with ambulation per patient. She denies any call, hemoptysis, recent long travel, history of DVT/PE/cancer, or hormone use. Patient states she has chronic swelling in her legs and ankles and denies any new or worsening symptoms or pain in the legs. No other past medical history per patient. She also denies any loss of taste or smell. CXR is normal. Dimer significanlty elevated. Pt is well appearing at this time and her vitals are normal. Pt handed off to ANJUM Parker pending CTA chest. Critical care attestation.: If time is entered above; I have spent that time in minutes in the direct care of this critically ill patient, excluding procedure time. ED Disposition Clinical Impression: Chest pain Disposition: HOME / SELF CARE / HOMELESS Is pt being admited?: No Condition: Stable Instructions: Nonspecific Chest Pain, Adult Referrals: [facility] [Provider Group] - 3-5 Days [facility] [Referring] - 3-5 Days
--- NOTE | 2021-02-18 14:56 | XRay Report ---
CHEST 2 VIEWS INDICATION / CLINICAL INFORMATION: chest pressure, SOB, recent surgery. COMPARISON: None available. FINDINGS: SUPPORT DEVICES: None. HEART / MEDIASTINUM: No significant abnormality. LUNGS / PLEURA: No significant pulmonary or pleural abnormality. No pneumothorax. ADDITIONAL FINDINGS: No significant additional findings. IMPRESSION: 1. No acute findings. Signer Name: Abiodun Rene MD Signed: 02/18/2021 2:52 PM Workstation Name: [id number]
[2021-02-18 15:20] LABS: Eosinophils % (Auto) 0.3 % (0.0-4.3); Monocytes # (Auto) 0.3 K/mm3 (0.0-0.8)
[2021-02-18 15:38] LABS: Alanine Aminotransferase 7 units/L (7-56); Albumin 3.1 g/dL (3.9-5); BUN/Creatinine Ratio 23; Blood Urea Nitrogen 7 mg/dL (7-17); Calcium 8.9 mg/dL (8.4-10.2); Hemolysis Index 0
[2021-02-18 16:50] LABS: Hematocrit 23.7 % (30.3-42.9); Hemoglobin 7.4 gm/dl (10.1-14.3); Mean Corpuscular Volume 75 fl (79-97); Red Blood Count 3.16 M/mm3 (3.65-5.03)
[2021-02-18 16:51] LABS: Basophils % (Auto) 0.2 % (0.0-1.8); Lymphocytes # (Auto) 1.4 K/mm3 (1.2-5.4); Lymphocytes % (Auto) 21.1 % (13.4-35.0); Mean Corpuscular HGB Conc 31 % (30-34); Platelet Count 205 K/mm3 (140-440); Red Cell Distribution Width 16.4 % (13.2-15.2)
--- NOTE | 2021-02-18 19:45 | Cat Scan Report ---
CTA CHEST WITH IV CONTRAST INDICATION: SOB, chest pain, +dimer 100 ML OMNI 350 CONTRAST: 100 cc Omnipaque 350 IV COMPARISON: Chest x-ray today Three-plane MIP reconstructions were produced. All CT scans at this location are performed using CT d ose reduction for ALARA by means of automated exposure control. NOTE: Resolution is decreased and artifact is introduced by the patient's size. FINDINGS: No significant axillary or chest wall abnormalities are seen. Visualized portions of the up per abdomen show cholecystectomy changes and mild fatty infiltration of the liver. No pleural effusio ns are seen. No pneumothorax or pneumomediastinum are noted. No mediastinal or hilar masses are seen. Lung edwards are clear. Aorta shows no aneurysmal dilatation or evidence of dissection. Slight ectasia of the distal arch is seen. Moderate opacification of the pulmonary arterial system was achieved. I do not see convincing evidenc e of pulmonary thromboembolism. IMPRESSION: No acute abnormalities are seen Signer Name: Juvencio Martin MD Signed: 02/18/2021 7:41 PM Workstation Name: [id number]
--- NOTE | 2021-02-19 12:20 | Electrocardiograph Report ---
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
== END 2021-02-18 21:14 | disposition home or self-care (01) ==
LOC: ED 13:11
DX: R07.89 Other chest pain (principal); R06.02 Shortness of breath; M79.89 Other specified soft tissue disorders; M25.473 Effusion, unspecified ankle; Z98.890 Other specified postprocedural states
CPT/HCPCS: 36415; 71046; 71275; 80053; 84484; 85025; 85379; 93005; 99284; Q9967